=== PATIENT | female | born 1955 | race Caucasian/White ===

== ENCOUNTER 2025-01-11 06:15 | Day surgery (SDC) | payer MEDICARE ==
[2025-01-10 10:16] VITALS: BMI 42.2
[~2025-01-11 06:15] MED LIST: EPINEPHrine 0.3 MG in Ophthalmic Irrigation Solution 500 ML IRR SCH
[2025-01-11] MEDS ORDERED: Cyclopentolate 1% Opth Drop 2 ML BOT ONE (06:35)
[2025-01-11] MEDS ORDERED: Lidocaine 1% PF 5 ML VIAL ONE ×2 (06:45→07:23)
[2025-01-11] MEDS ORDERED: PROPOFOL 20 ML ONE (06:46)
[2025-01-11] MEDS ORDERED: Lidocaine 4% PF 5 ML AMP ONE (07:23)
[2025-01-11] MEDS ORDERED: Maxitrol 0.1% Opth Oint 3.5 GM TUBE ONE (07:23)
[2025-01-11] MEDS ORDERED: TISSUEBLUE 0.5 ML SYRINGE IO ONE (07:23)
[2025-01-11] MEDS ORDERED: CEFAZOLIN 1 GM VIAL ONE (07:23)
== END 2025-01-11 09:05 | disposition home or self-care (01) ==
LOC: EDBD → SDC 06:15
PROVIDERS: ATTEND Ophthalmology Retina Specialist
PROC: 08T53ZZ Resection of Left Vitreous, Percutaneous Approach (ICD-10-PCS; principal; 2025-01-11)
DX: H35.372 Puckering of macula, left eye (principal); Z88.8 Allergy status to other drugs, medicaments and biological substances
CPT/HCPCS: 67041; 82962; 93005; J0166; J0690; J2250; J2704; J3010; J3301; J3490; 36416; 93010